=== PATIENT | female | born 1950 ===

== ENCOUNTER 2025-01-07 10:14 | Inpatient (IN) | payer MEDICARE, OTHER ==
[~2025-01-07] VITALS: Ht 160 cm; Wt 58.1 kg
[2025-01-07] MEDS ORDERED: APIX5TAB PO (10:20)
[2025-01-07] MEDS ORDERED: SACU1TAB PO (10:20)
[2025-01-07] MEDS ORDERED: DIGO125T20 PO (10:20)
[2025-01-07] MEDS ORDERED: FURO40TA5 PO (10:21)
[2025-01-07] MEDS ORDERED: EMPA25TA PO (10:21)
[2025-01-07] MEDS ORDERED: LEVO25CA4 PO (10:21)
[2025-01-07] MEDS ORDERED: ONDA4TAB5 PO (10:22)
[2025-01-07] MEDS ORDERED: METF-440 PO (10:22)
[2025-01-07 10:38] VITALS: BP 103/73
[2025-01-07] MEDS ORDERED: CEFEPIME HCL 1 G VIAL ONE (10:49)
[2025-01-07 11:07] LABS: PLATELET COUNT (AUTO) 250 K/uL (179-408); RED BLOOD CELL COUNT(AUTO) 5.37 MIL/uL (3.63-4.92); RED CELL DISTRIBUTION WIDTH 14.4 % (12.3-17.7); WHITE BLOOD COUNT (AUTO) 14.6 K/uL (3.8-11.8)
[2025-01-07 11:21] LABS: ASPARTATE AMINOTRANSFERASE 33 U/L (15-37); CREATININE 5.0 mg/dL (0.6-1.3); SODIUM SERUM 140 mmol/L (136-145); TOTAL PROTEIN, SERUM 8.2 g/dL (6.4-8.2)
[2025-01-07 11:34] LABS: UREA NITROGEN, BLOOD 144 mg/dL (7-18)
[2025-01-07] MEDS: IV NORMAL SALINE 1000 ML BAG IV ONE ×2 (11:41→15:00)
[2025-01-07] MEDS: CEFEPIME (MAXEPIME) 1 G in IV DEXTROSE 5% 50 ML IV ONE (11:41)
[2025-01-07 11:47] LABS: *BLOOD, URINE 3+ (NEGATIVE); *CLARITY,URINE CLOUDY (CLEAR); *COLOR,URINE AMBER (YELLOW); *KETONES,URINE TRACE (NEGATIVE); *PROTEIN,URINE 2+ (NEGATIVE); *UROBILINOGEN,URINE 0.2 E.U./dl (NORMAL); LEUKOCYTE ESTERASE ,URINE 1+ (NEGATIVE); NITRITE, URINE NEGATIVE (NEGATIVE); UGLUCOSE TRACE (NEGATIVE)
[2025-01-07 11:50] LABS: *BILIRUBIN,URIN 2+ (NEGATIVE)
[2025-01-07 12:27] LABS: SQUAMOUS EPITHELIAL CELL,UR FEW /HPF (NONE SEEN)
[2025-01-07 12:28] LABS: URINE AMORPHOUS URATE FEW /HPF
[2025-01-07 15:30] VITALS: BP 149/65; TEMP 97.3; O2SAT 97
[2025-01-07] MEDS ORDERED: ATOR40TA PO (16:09)
[2025-01-07] MEDS ORDERED: CARV3.122 PO (16:10)
[2025-01-07] MEDS ORDERED: BUSP10TA3 PO (16:10)
[2025-01-07] MEDS ORDERED: CLOP75TA33 PO (16:11)
[2025-01-07] MEDS ORDERED: REMEDY ESSENTIAL ZINC PASTE 113 GM TP PRN (18:00)
[2025-01-07] MEDS ORDERED: ACETAMINOPHEN 325 MG TABLET PO PRN (18:00)
[2025-01-07] MEDS ORDERED: CEFTRIAXONE 500 MG in IV DEXTROSE 5% 50 ML IV SCH (18:00)
[2025-01-07 19:32] VITALS: BP 141/76; TEMP 97.6; O2SAT 98
[2025-01-07] MEDS: IV 1/2NS 1000 ML 1,000 ML IV PRN (20:55)
[2025-01-07 22:00] VITALS: O2SAT 96
[2025-01-08] VITALS (8 sets, daily range): BP systolic 102–129; BP diastolic 46–63; TEMP 97.6–98.2; O2SAT 93–96
[2025-01-08] MEDS: ONDANSETRON 4 MG/2 ML VIAL IV PRN (03:35)
[2025-01-08] MEDS: PANTOPRAZOLE SODIUM 40 MG TABLET.DR PO SCH (06:29)
[2025-01-08 07:24] LABS: PLATELET COUNT (AUTO) 183 K/uL (179-408); RED BLOOD CELL COUNT(AUTO) 4.55 MIL/uL (3.63-4.92); RED CELL DISTRIBUTION WIDTH 14.6 % (12.3-17.7); WHITE BLOOD COUNT (AUTO) 14.7 K/uL (3.8-11.8)
[2025-01-08 07:28] LABS: CREATININE 3.3 mg/dL (0.6-1.3); SODIUM SERUM 143 mmol/L (136-145)
[2025-01-08 07:35] LABS: UREA NITROGEN, BLOOD 114 mg/dL (7-18)
[2025-01-08] MEDS: POTASSIUM CHLORIDE 10 MEQ TAB.PRT.SR PO ONE (11:33)
[2025-01-08] MEDS: APIXABAN 5 MG TABLET PO SCH (13:01)
[2025-01-08] MEDS: CARVEDILOL 3.125 MG TABLET PO SCH (21:10)
[2025-01-08] MEDS: ATORVASTATIN 40 MG TABLET PO SCH (21:10)
[2025-01-09] VITALS (7 sets, daily range): BP systolic 114–142; BP diastolic 43–80; TEMP 97–98.3; O2SAT 95–100
[2025-01-09] MEDS: LEVOTHYROXINE SODIUM 25 MCG TABLET PO SCH (06:14)
[2025-01-09 07:14] LABS: CREATININE 2.1 mg/dL (0.6-1.3); SODIUM SERUM 141 mmol/L (136-145); UREA NITROGEN, BLOOD 80 mg/dL (7-18)
[2025-01-09] MEDS ORDERED: DIGOXIN 125 MCG TABLET PO SCH (09:00)
[2025-01-09] MEDS: CLOPIDOGREL 75 MG TABLET PO SCH (09:22)
[2025-01-09] MEDS: POTASSIUM CHLORIDE 20 MEQ POWDER PACKET GT ONE (09:23)
[2025-01-10] VITALS (8 sets, daily range): BP systolic 110–126; BP diastolic 49–73; TEMP 97.8–98.7; O2SAT 95–99
[2025-01-10] MEDS ORDERED: AMIODARONE HCL 200 MG TABLET ONE (02:05)
[2025-01-10] MEDS: ONDANSETRON ODT 4 MG TAB.RAPDIS SL ONE (02:48)
[2025-01-10] MEDS: AMIODARONE HCL 200 MG TABLET PO ONE (02:48)
[2025-01-10] MEDS: POTASSIUM CHLORIDE 10 MEQ TAB.PRT.SR PO ONE (05:17)
[2025-01-10] MEDS: MAGNESIUM OXIDE 400 MG TABLET PO ONE ×2 (05:42→08:30)
[2025-01-10] MEDS: POTASSIUM CHLORIDE 20 MEQ TAB.PRT.SR PO ONE ×2 (08:30→13:51)
[2025-01-10 08:48] LABS: PLATELET COUNT (AUTO) 147 K/uL (179-408); RED BLOOD CELL COUNT(AUTO) 4.13 MIL/uL (3.63-4.92); RED CELL DISTRIBUTION WIDTH 14.7 % (12.3-17.7); WHITE BLOOD COUNT (AUTO) 12.7 K/uL (3.8-11.8)
[2025-01-10] MEDS: NEPRO (VANILLA) 237 ML CAN PO SCH (09:00)
[2025-01-10 09:01] LABS: ASPARTATE AMINOTRANSFERASE 37 U/L (15-37); CREATININE 1.5 mg/dL (0.6-1.3); SODIUM SERUM 140 mmol/L (136-145); TOTAL PROTEIN, SERUM 5.8 g/dL (6.4-8.2); UREA NITROGEN, BLOOD 56 mg/dL (7-18)
[2025-01-10] MEDS: NEUTRA PHOS PACKET PO ONE (11:47)
[2025-01-11] VITALS (8 sets, daily range): BP systolic 98–125; BP diastolic 49–66; TEMP 97.6–98.6; O2SAT 95–100
[2025-01-11 07:14] LABS: PLATELET COUNT (AUTO) 138 K/uL (179-408); RED BLOOD CELL COUNT(AUTO) 3.84 MIL/uL (3.63-4.92); RED CELL DISTRIBUTION WIDTH 14.8 % (12.3-17.7); WHITE BLOOD COUNT (AUTO) 11.5 K/uL (3.8-11.8)
[2025-01-11 07:30] LABS: ASPARTATE AMINOTRANSFERASE 30 U/L (15-37); CREATININE 1.2 mg/dL (0.6-1.3); SODIUM SERUM 140 mmol/L (136-145); TOTAL PROTEIN, SERUM 5.2 g/dL (6.4-8.2); UREA NITROGEN, BLOOD 39 mg/dL (7-18)
[2025-01-11] MEDS: MAGNESIUM SULFATE/D5W 100 ML IV SCH (08:39)
[2025-01-11] MEDS: POTASSIUM PHOSPHATE MM 7.5 MMOL in IV NORMAL SALINE 97.5 ML IV ONE (09:09)
[2025-01-11 11:17] LABS: NEUTROPHILS % (MANUAL) 70 % (42-75)
[2025-01-11 11:18] LABS: EOSINOPHILS % (MANUAL) 2 % (0-8); LYMPHOCYTES % (MANUAL) 22 % (20-40); MONOCYTES % (MANUAL) 6 % (2-10); PLATELET ESTIMATE DECREASED
[2025-01-11] MEDS: NEPRO (VANILLA) 237 ML CAN PO SCH (17:36)
[2025-01-11] MEDS: MIRTAZAPINE 15 MG TABLET PO SCH (20:48)
[2025-01-12 05:30] VITALS: BP 120/79; TEMP 98; O2SAT 97
[2025-01-12 07:24] LABS: PLATELET COUNT (AUTO) 136 K/uL (179-408); RED BLOOD CELL COUNT(AUTO) 4.01 MIL/uL (3.63-4.92); RED CELL DISTRIBUTION WIDTH 15.1 % (12.3-17.7); WHITE BLOOD COUNT (AUTO) 10.6 K/uL (3.8-11.8)
[2025-01-12 07:40] LABS: CREATININE 1.1 mg/dL (0.6-1.3); SODIUM SERUM 142 mmol/L (136-145); UREA NITROGEN, BLOOD 27 mg/dL (7-18)
[2025-01-12 09:17] LABS: EOSINOPHILS % (MANUAL) 1 % (0-8); LYMPHOCYTES % (MANUAL) 24 % (20-40); MONOCYTES % (MANUAL) 6 % (2-10); NEUTROPHILS % (MANUAL) 69 % (42-75)
[2025-01-12 09:18] LABS: PLATELET ESTIMATE DECREASED
[2025-01-12] MEDS: POTASSIUM CHLORIDE 50 ML IV SCH (09:54)
[2025-01-12 12:00] VITALS: BP 104/60; TEMP 97.7; O2SAT 97
[2025-01-12] MEDS ORDERED: IV NORMAL SALINE 500 ML BAG IV ONE (12:00)
[2025-01-12] MEDS: IV NORMAL SALINE 500 ML IV ONE (12:44)
[2025-01-12 16:30] VITALS: BP 123/69; TEMP 97.8; O2SAT 97
[2025-01-12 19:49] VITALS: BP 128/53; TEMP 97.8; O2SAT 100
[2025-01-12] MEDS: ACIDOPHILUS/BULGARICUS CHEW TAB PO SCH (20:19)
[2025-01-12] MEDS: QUETIAPINE FUMARATE 25 MG TABLET PO SCH (20:20)
[2025-01-12 21:01] VITALS: O2SAT 98
[2025-01-13] MEDS: IV D5 1/2 NS 1000 ML 1,000 ML IV PRN (04:11)
[2025-01-13 04:59] VITALS: BP 111/86; TEMP 97.8; O2SAT 97
[2025-01-13 06:49] LABS: CREATININE 0.9 mg/dL (0.6-1.3); SODIUM SERUM 142 mmol/L (136-145); UREA NITROGEN, BLOOD 21 mg/dL (7-18)
[2025-01-13 07:00] VITALS: BP 132/65; TEMP 97.6; O2SAT 100
[2025-01-13 12:00] VITALS: BP 100/55; TEMP 97.6; O2SAT 97
[2025-01-13] MEDS: QUETIAPINE FUMARATE 25 MG TABLET PO SCH (12:16)
[2025-01-13] MEDS ORDERED: PANT40TA49 PO (13:14)
[2025-01-13] MEDS ORDERED: ACID1TAB4 PO (13:14)
[2025-01-13] MEDS ORDERED: NUT.237L67 PO (13:14)
[2025-01-13] MEDS ORDERED: QUET25TA36 PO (13:14)
[2025-01-13] MEDS ORDERED: MIRT-93 PO (13:14)
[2025-01-13 16:00] VITALS: BP 86/34; TEMP 97.7; O2SAT 100
[2025-01-13] MEDS: IV NORMAL SALINE 500 ML BAG IV ONE (16:59)
[2025-01-13 17:20] VITALS: BP 106/52; O2SAT 100
[2025-01-13 19:45] VITALS: BP 98/44; TEMP 97.6; O2SAT 98
[2025-01-13] MEDS ORDERED: ZOLPIDEM 5 MG TABLET PO PRN (23:15)
[2025-01-13] MEDS: OLANZAPINE 10 MG VIAL IM ONE (23:53)
[2025-01-14 06:11] VITALS: BP 128/62; TEMP 97.6; O2SAT 98
[2025-01-14 09:18] VITALS: BP 114/63
[2025-01-14] MEDS: IV NORMAL SALINE 500 ML BAG IV ONE (14:24)
== END 2025-01-14 18:20 | DRG 682 ==
LOC: ER 10:14 → TELE3 14:12 → MEDSURG3 01-11 09:34
PROC: 05HC33Z Insertion of Infusion Device into Left Basilic Vein, Percutaneous Approach (ICD-10-PCS; principal; 2025-01-10)
DX: N17.0 Acute kidney failure with tubular necrosis (principal); G93.41 Metabolic encephalopathy; I21.A1 Myocardial infarction type 2; J96.01 Acute respiratory failure with hypoxia; I13.0 Hypertensive heart and chronic kidney disease with heart failure and stage 1 through stage 4 chronic kidney disease, or unspecified chronic kidney disease; I50.32 Chronic diastolic (congestive) heart failure; N39.0 Urinary tract infection, site not specified; I42.9 Cardiomyopathy, unspecified; E44.0 Moderate protein-calorie malnutrition; I47.10 Supraventricular tachycardia, unspecified; I48.0 Paroxysmal atrial fibrillation; R62.7 Adult failure to thrive; Z68.22 Body mass index [BMI] 22.0-22.9, adult; E03.9 Hypothyroidism, unspecified; F32.A Depression, unspecified; F41.9 Anxiety disorder, unspecified; F29 Unspecified psychosis not due to a substance or known physiological condition; E11.22 Type 2 diabetes mellitus with diabetic chronic kidney disease; N18.9 Chronic kidney disease, unspecified; E78.5 Hyperlipidemia, unspecified; J44.9 Chronic obstructive pulmonary disease, unspecified; Z79.01 Long term (current) use of anticoagulants; R26.81 Unsteadiness on feet; N20.0 Calculus of kidney; E87.6 Hypokalemia; E88.09 Other disorders of plasma-protein metabolism, not elsewhere classified; I25.10 Atherosclerotic heart disease of native coronary artery without angina pectoris; E86.0 Dehydration; T50.1X5A Adverse effect of loop [high-ceiling] diuretics, initial encounter; Y92.129 Unspecified place in nursing home as the place of occurrence of the external cause; Z79.84 Long term (current) use of oral hypoglycemic drugs; Z79.890 Hormone replacement therapy; Z78.1 Physical restraint status
CPT/HCPCS: 36415; 70030-TC; 71045; 76770; 83605; 83735; 84100; 84132; 84443; 84484; 85025; 85730; 87040; 87086; 93005; 93307; 94760; A4606; A4663; G0378; J0692; J0696; J2358; J2405; J3475; J3480; J3490; J7040; Q0162